=== PATIENT | male | born 1990 | race Caucasian/White ===

== ENCOUNTER 2019-05-18 13:08 | Emergency (ER) | payer OTHER ==
[~2019-05-18] VITALS: Ht 182.9 cm; Wt 102.1 kg
[2019-05-18 13:23] VITALS: Ht 182.9 cm; Wt 102.1 kg
[2019-05-18 14:20] LABS: BASOPHIL % 0.5 % (0-2); PLATELET COUNT 242 x10^3mcL (130-400); RED CELL DISTRIBUTION WIDTH 12.2 % (11.5-14.5)
[2019-05-18 14:28] LABS: CALCIUM 8.8 mg/dL (8.5-10.1); CARBON DIOXIDE 28.6 mmol/L (21-32); CHLORIDE SERUM 103 mmol/L (98-107); GFR1 > 60 mL/min; GLUCOSE SERUM 109 mg/dL (74-106); POTASSIUM SERUM 4.1 mmol/L (3.5-5.1); SODIUM SERUM 139 mmol/L (136-145)
[2019-05-18 14:33] LABS: ALBUMIN 3.6 g/dL (3.4-5.0); ALKALINE PHOSPHATASE 75 U/L (46-116); ALT/SGPT 29 U/L (16-63); AST/SGOT 12 U/L (15-37); BILIRUBIN TOTAL 1.41 mg/dL (0.20-1.00); C REACTIVE PROTEIN 5.4 mg/dL (<=0.9); TOTAL PROTEIN, SERUM 7.3 g/dL (6.4-8.2)
[2019-05-18 15:13] LABS: ERYTHROCYTE SED RATE 11 mm/hr (0-15)
[2019-05-18 15:14] VITALS: BP 110/78
== END 2019-05-18 15:14 | disposition home or self-care (01) ==
LOC: ED 13:08
PROVIDERS: Specialist
DX: L03.115 Cellulitis of right lower limb (principal); B35.3 Tinea pedis
CPT/HCPCS: J1885; J2543; Q0092

== ENCOUNTER 2019-05-20 13:23 | Emergency (ER) | payer OTHER ==
[~2019-05-20] VITALS: Ht 182.9 cm; Wt 102.1 kg
[2019-05-20 13:37] VITALS: Ht 182.9 cm; Wt 102.1 kg
[2019-05-20 15:19] VITALS: BP 120/68
== END 2019-05-20 15:19 | disposition home or self-care (01) ==
LOC: ED 13:23
DX: L03.115 Cellulitis of right lower limb (principal); Z88.8 Allergy status to other drugs, medicaments and biological substances

== ENCOUNTER 2019-05-27 15:50 | Emergency (ER) | payer OTHER ==
[~2019-05-27] VITALS: Ht 182.9 cm; Wt 102.1 kg
[2019-05-27 16:06] VITALS: BP 177/71; Ht 182.9 cm; Wt 102.1 kg
== END 2019-05-27 19:15 | disposition home or self-care (01) ==
LOC: ED 15:50
DX: M79.671 Pain in right foot (principal); R03.0 Elevated blood-pressure reading, without diagnosis of hypertension; Z88.8 Allergy status to other drugs, medicaments and biological substances
CPT/HCPCS: Q0162